=== PATIENT | male | born 1970 | race Caucasian/White ===

== ENCOUNTER 2021-03-02 00:59 | Emergency (ER) | payer BC, SELFPAY ==
[2021-03-02 01:14] VITALS: BP 125/76; PULSE 96; RESP 20; TEMP 36.2; O2SAT 90; BMI 35.9
--- NOTE | 2021-03-02 01:22 | CTR_ITS ---
PROCEDURE INFORMATION: Exam: CT Abdomen And Pelvis With Contrast Exam date and time: 03/02/2021 1:22 AM Age: 50 years old Clinical indication: Vomiting; Abdominal pain; Generalized; Prior surgery; Surgery date: 6+ months; Surgery type: Hernia; Additional info: Abdominal pain vomiting TECHNIQUE: Imaging protocol: Computed tomography of the abdomen and pelvis with contrast. Radiation optimization: All CT scans at this facility use at least one of these dose optimization techniques: automated exposure control; mA and/or kV adjustment per patient size (includes targeted exams where dose is matched to clinical indication); or iterative reconstruction. Contrast material: OMNI 300; Contrast volume: 95 ml; Contrast route: INTRAVENOUS (IV); COMPARISON: No relevant prior studies available. RADIATION DOSE METRICS: Total DLP (mGy-cm): 1857.51 FINDINGS: Lungs: Hazy bilateral pulmonary opacities which are consistent with COVID-19. Liver: There is fatty infiltration of the liver. Gallbladder and bile ducts: Gallbladder is normal. Pancreas: Pancreas is normal. Spleen: Spleen is normal. Adrenal glands: Adrenals are normal. Kidneys and ureters: There is a subcentimeter low-attenuation lesion/lesions, of the left kidney which are too small to accurately characterize by CT. Stomach and bowel: Unremarkable. No obstruction. No mucosal thickening. Appendix: No evidence of appendicitis. Intraperitoneal space: Unremarkable. No free air. No significant fluid collection. Vasculature: Unremarkable. No abdominal aortic aneurysm. Lymph nodes: Unremarkable. No enlarged lymph nodes. Urinary bladder: Unremarkable as visualized. Reproductive: Unremarkable as visualized. Bones/joints: Unremarkable. No acute fracture. Soft tissues: Prior left inguinal hernia repair. Prior right inguinal hernia repair. CT/CT abdomen pelvis w con* [id number] IMPRESSION: 1. No cause for acute pain is identified. 2. Hazy bilateral pulmonary opacities which are consistent with COVID-19. 3. Fatty infiltration of the liver. COMMENTS: Consistent with the [employer]'s Incidental Findings Committee white paper (J Am Aracelis Radiol 2018): Any incidental renal lesion less than 1 cm or classified as too small to characterize, or any incidental cystic renal lesion characterized as simple-appearing, is likely benign. No follow-up imaging is recommended for these lesions per consensus recommendations based on imaging criteria. Radiation Dose CTDIVOL = (mGy): DLP = 1857.51 (mGy-cm)
[2021-03-02] MEDS: ondansetron 2 mg/ML SDV 2 mL 4 MG IVP (01:32)
[2021-03-02 01:33] VITALS: RESP 16; O2SAT 92
[2021-03-02] MEDS: morphine 4 mg/mL SDV 1 mL IVP (01:33)
[2021-03-02 01:39] LABS: Basophils % 0.1 %; Hematocrit 36.7 % (42.0-52.0); Hemoglobin 12.1 g/dL (11.7-16.6); Lymphocytes # 1.4 10^3/uL (0.8-4.8); Lymphocytes % 20.4 %; Mean Corpuscular Hemoglobin 29.4 pg (28.0-34.0); Mean Corpuscular Volume 89.1 fl (80-94); Mean Platelet Volume 10.2 fL (7.4-10.4); Monocytes # 0.3 10^3/uL (0.2-0.9); Monocytes % 4.9 %; Neutrophils % 74.2 %; Nucleated Red Blood Cells % 0 %; Platelet Count 183 10^3/cmm (130-400); Red Blood Count 4.12 10^6/uL (4.1-5.3); Red Cell Distribution Width 13.3 % (12.1-15.1); White Blood Count 6.8 10^3/uL (4.0-10.0)
[2021-03-02] MEDS: iohexol 300 mg/mL 100 mL Btl IV (01:40)
[2021-03-02] MEDS: sodium chloride 0.9% 1,000 ML 999 ML IV (01:50)
[2021-03-02 01:55] LABS: Lactate (Lactic Acid level) 0.8 mmol/L (0.5-2.2)
[2021-03-02 02:00] LABS: SARS Covid-2 Antigen Negative (Negative)
[2021-03-02 02:20] LABS: Alanine Aminotransferase 63 U/L (0-41); Albumin Level 3.4 g/dL (3.5-5.2); Alkaline Phosphatase 68 IU/L (40-130); Aspartate Amino Transferase 63 U/L (0-40); Blood Urea Nitrogen 10 mg/dL (6-20); C Reactive Protein 31.7 mg/L (0.0-4.9); Calcium 8.3 mg/dL (8.5-10.5); Carbon Dioxide 25 mmol/L (22-29); Chloride 94 mmol/L (98-107); Creatine Phosphokinase 127 U/L (39-308); Creatinine Clr Calc Pharmacy 132.9061; Globulin 2.8 g/dL (1.3-4.6); Glomerular Filtration Rate 89.7 mL/min (90-130); Glucose 100 mg/dL (65-115); Lipase 47 U/L (13-60); Osmolality Calculated 269 mOsm/kg (285-295); Sodium 130 mmol/L (136-145); Total Bilirubin 0.3 mg/dL (0.15-1.2); Total Protein 6.2 g/dL (6.6-8.7)
[2021-03-02 02:26] LABS: Procalcitonin 0.11 ng/mL (0-0.5)
[2021-03-02 02:35] LABS: Protein Urine Trace (Negative); Specific Gravity, Urine 1.005 (1.005-1.030); Urine Appearance Clear (CLEAR); Urine Color Yellow (Yellow); pH Urine 6.5 (5-7)
[2021-03-02 02:36] LABS: Add Urine Microscopic? YES; Bilirubin Urine 1+ (Negative); Blood Urine 2+ (Negative); Glucose Urine UA Norm (Normal); Ketones Urine Negative (Negative); Leukocyte Esterase Urine Trace (Negative); Nitrate Urine Negative (Negative); Urobilinogen Urine 1 mg/dL (Negative)
[2021-03-02 02:37] LABS: Add Urine Culture? No; Bacteria Urine TRACE /hpf; Mucus Urine TRACE /hpf; Squamous Epithelial Cell Urine 0-4 /hpf (0-5); WBC Urine 0-4 /hpf (0-5)
--- NOTE | 2021-03-02 02:46 | ED_ITS ---
HPI - Nausea/Vomiting/Diarrhea General: Chief complaint: Nausea/Vomiting/Diarrhea Stated complaint: Nausea\Vomiting\ADB Pain Time Seen by Provider: 03/02/21 01:13 History of Present Illness: HPI Narrative: 50-year-old male presenting with nausea vomiting and diarrhea with abdominal pain. He notes that he has been sick for the last week. He had multiple episodes of vomiting that day. He has since had some vomiting and diarrhea with generalized weakness. He states that he has had a cough with some congestion as well. No fever. MD elicited complaint: nausea, vomiting, diarrhea and abdominal pain Pertinent past history: other Onset (ago): day(s) (7) Description of vomiting: watery Description of diarrhea: watery Associated nausea: Yes Associated abdominal pain: Yes Location of pain: Diffuse Radiation: diffuse Pain consistency: constant Severity: moderate Quality: cramping Exacerbating factors: none Relieving factors: none Associated symtoms: Reports cough, nausea and weakness; Denies bloating, chest pain, diaphoresis, fevers/chills or short of breath Review of Systems Const: Denies: diaphoresis Card: Denies: chest pain GI: Reports: nausea; Denies: bloating [facility] ED PFSH: Social History Smoking and tobacco status: never smoked Physical Exam Const: COMMON NORMALS: no acute distress and patient oriented x3 HENMT: COMMON NORMALS: normocephalic HEAD & SCALP: normocephalic Eye: COMMON NORMALS: Equal, round and reactive pupils present and EOMs intact bilaterally PUPIL: Yes Equal, round and reactive pupils present Chest: COMMONS NORMALS: normal inspection of the chest Resp: COMMON NORMALS: normal respiratory effort, No use of accessory muscles and clear to auscultation bilaterally AUSCULTATION: clear to auscultation bilaterally Cardio: COMMON NORMALS: regular rate and regular rhythm RATE: regular rate RHYTHM: regular rhythm Neuro: COMMON NORMALS: patient oriented x3 Course Vital Signs: Vital signs: Vital Signs Temperature 97.1 F L 03/02/21 01:14 Pulse Rate 96 03/02/21 01:14 Respiratory Rate 16 03/02/21 01:33 Blood Pressure 125/76 03/02/21 01:14 Pulse Oximetry 92 03/02/21 01:33 MDM - Nausea/Vomiting/Diarrhea MDM Narrative: Medical decision making narrative: 50-year-old male with gastroenteritis symptoms and belly pain. His potassium is 3.0 and repleted here. His white blood cell count is 6.8. His CT of the abdomen and pelvis is nonacute, as far as the abdomen and GI tract, but does show hazy bilateral pulmonary opacities consistent with pneumonitis or COVID-19. His rapid COVID-19 is posit ivonne here. PCR is sent. He has had symptoms at least 7 days. He is not hypoxic here. He'll be allowed discharged with symptomatic treatment. Lab Data: Labs: Lab Results 03/02/21 03/02/21 03/02/21 Range/Units 01:23 01:23 01:23 WBC 6.8 (4.0-10.0) 10^3/ uL RBC 4.12 (4.1-5.3) 10^6/u L Hgb 12.1 (11.7-16.6) g/dL Hct 36.7 L (42.0-52.0) % MCV 89.1 (80-94) fl MCH 29.4 (28.0-34.0) pg MCHC 33.0 (30.0-36.0) g/dL RDW 13.3 (12.1-15.1) % Plt Count 183 (130-400) 10^3/c mm MPV 10.2 (7.4-10.4) fL Neut % (Auto) 74.2 % Lymph % (Auto) 20.4 % Stevens % (Auto) 4.9 % Eos % (Auto) 0.0 % Baso % (Auto) 0.1 % Neut # (Auto) 5.00 (1.8-7.7) 10^3/u L Lymph # (Auto) 1.4 (0.8-4.8) 10^3/u L Stevens # (Auto) 0.3 (0.2-0.9) 10^3/u L Eos # (Auto) 0.0 (0.0-0.8) 10^3/u L Baso # (Auto) 0.0 (0.0-0.1) 10^3/u L Nucleated RBC % (a uto) 0 % Nucleated RBCs # 0.0 /100WBC Sodium Cancelled Potassium Cancelled Chloride Cancelled Carbon Dioxide Cancelled Anion Gap Cancelled BUN Cancelled Creatinine Cancelled GFR Calculation Cancelled Glucose Cancelled Calculated Osmolal ity Cancelled Lactate 0.8 (0.5-2.2) mmol/L Calcium Cancelled Total Bilirubin Cancelled AST Cancelled ALT Cancelled Alkaline Phosphata se Cancelled Creatine Kinase Cancelled C-Reactive Protein Cancelled Total Protein Cancelled Albumin Cancelled Globulin Cancelled Lipase Cancelled Procalcitonin Cancelled Urine Color (Yellow) Urine Appearance (CLEAR) Urine pH (5-7) Ur Specific Gravit y (1.005-1.030) Urine Protein (Negative) Urine Glucose (UA) (Normal) Urine Ketones (Negative) Urine Blood (Negative) Urine Nitrate (Negative) Urine Bilirubin (Negative) Urine Urobilinogen (Negative) mg/dL Ur Leukocyte Joyce ase (Negative) Urine RBC (0-2) /hpf Urine WBC (0-5) /hpf Ur Squamous Epith Cells (0-5) /hpf Amorphous Sediment Urine Bacteria (NONE) /hpf Urine Mucus /hpf SARS-CoV-2 Ag (Rap id) (Negative) 03/02/21 03/02/21 03/02/21 Range/Units 01:23 01:53 02:20 WBC (4.0-10.0) 10^3/ uL RBC (4.1-5.3) 10^6/u L Hgb (11.7-16.6) g/dL Hct (42.0-52.0) % MCV (80-94) fl MCH (28.0-34.0) pg MCHC (30.0-36.0) g/dL RDW (12.1-15.1) % Plt Count (130-400) 10^3/c mm MPV (7.4-10.4) fL Neut % (Auto) % Lymph % (Auto) % Stevens % (Auto) % Eos % (Auto) % Baso % (Auto) % Neut # (Auto) (1.8-7.7) 10^3/u L Lymph # (Auto) (0.8-4.8) 10^3/u L Stevens # (Auto) (0.2-0.9) 10^3/u L Eos # (Auto) (0.0-0.8) 10^3/u L Baso # (Auto) (0.0-0.1) 10^3/u L Nucleated RBC % (a uto) % Nucleated RBCs # /100WBC Sodium 130 L Potassium 3.0 L Chloride 94 L Carbon Dioxide 25 Anion Gap 14.0 BUN 10 Creatinine 0.9 GFR Calculation 89.7 L Glucose 100 Calculated Osmolal ity 269 L Lactate (0.5-2.2) mmol/L Calcium 8.3 L Total Bilirubin 0.3 AST 63 H ALT 63 H Alkaline Phosphata se 68 Creatine Kinase 127 C-Reactive Protein 31.7 H Total Protein 6.2 L Albumin 3.4 L Globulin 2.8 Lipase 47 Procalcitonin 0.11 Urine Color Yellow (Yellow) Urine Appearance Clear (CLEAR) Urine pH 6.5 (5-7) Ur Specific Gravit y 1.005 (1.005-1.030) Urine Protein Trace (Negative) Urine Glucose (UA) Norm (Normal) Urine Ketones Negative (Negative) Urine Blood 2+ H (Negative) Urine Nitrate Negative (Negative) Urine Bilirubin 1+ H (Negative) Urine Urobilinogen 1 H (Negative) mg/dL Ur Leukocyte Joyce ase Trace H (Negative) Urine RBC 5-10 H (0-2) /hpf Urine WBC 0-4 H (0-5) /hpf Ur Squamous Epith Cells 0-4 H (0-5) /hpf Amorphous Sediment Not Reportable Urine Bacteria Trace (NONE) /hpf Urine Mucus Trace /hpf SARS-CoV-2 Ag (Rap id) Negative (Negative) Discharge Plan Discharge Patient Disposition: Home Clinical Impression: Gastroenteritis, Suspected 2019 novel coronavirus infection Condition: Stable Prescriptions: New hydrocodone-acetaminophen 5-325 mg tablet 1 tab PO Q8H PRN (Reason: pain) Qty: 7 RF: 0 Zofran 4 mg tablet 4 mg PO Q6H PRN (Reason: nausea and vomiting) Qty: 10 RF: 0 No Action No Known Home Medications RF: 0 amoxicillin-pot clavulanate [Augmentin] 875-125 mg tablet 1 tab PO Q12H 7 Days Qty: 14 RF: 0 Discharge Orders: Discharge ED (Routine); Ordered 03/02/21 Ordered By: Meliton Kincaid Patient Instructions: Gastroenteritis (ED) Activity Restrictions/Additional Instructions: Your CT scan, and laboratory values are suspicious for COVID-19. A confirmatory test has been sent for this. Your treatment is symptomatic, with nausea medication and pain medication as needed. Return for worsening shortness of breath, inability to tolerate liquids despite treatment, any other concerning symptoms. He should quarantine at home until the results of your final PCR COVID-19 test comes back negative. If it turns positive, call the [facility] COVID-19 hotline during normal business hours, as you may be a candidate for monoclonal antibody infusion. Coding Level of Care Code ED Service Establishment Attendant for Todd Fwkasey Exam Detailed
[2021-03-03 19:58] LABS: Quest SARS-CoV-2 RNA DETECTED (NOT DETECTED)
== END 2021-03-02 04:22 | disposition home or self-care (01) ==
PROVIDERS: Emergency Provider Emergency Medicine
DX: K52.9 Noninfective gastroenteritis and colitis, unspecified (principal); U07.1 COVID-19
CPT/HCPCS: 74177; 80053; 81001; 82550; 83605; 83690; 84145; 85025; 86140; 87426; 87635; 96361; 96374; 96375; 99284; J2270; J2405; J7030; Q9967

== ENCOUNTER 2021-03-04 08:51 | Emergency (ER) | payer BC, SELFPAY ==
--- NOTE | 2021-03-04 09:06 | XRR_ITS ---
PROCEDURE INFORMATION: Exam: XR Chest Exam date and time: 03/04/2021 9:06 AM Age: 50 years old Clinical indication: Other: Weakness; Patient HX: Covid symptoms, approx. 3 days; Additional info: Covid, weakness TECHNIQUE: Imaging protocol: XR of the chest. Views: 1 view. Total images: 1 COMPARISON: CT abdomen pelvis w con* [id number] 03/02/2021 1:38 AM FINDINGS: Lungs: Hazy focal bilateral pulmonary opacities within bilateral lower lobes were partially visualized on prior CT and appear unchanged. Pleural spaces: Unremarkable. No pleural effusion. No pneumothorax. Heart/Mediastinum: Unremarkable. No cardiomegaly. Bones/joints: Unremarkable. XR/XR chest 1V portable [id number] IMPRESSION: Hazy focal bilateral pulmonary opacities within bilateral lower lobes were partially visualized on prior CT and appear unchanged.
[2021-03-04 09:36] VITALS: BP 119/77; PULSE 87; RESP 18; TEMP 37.9; O2SAT 94; BMI 35.0
--- NOTE | 2021-03-04 12:36 | PC.NURSE ---
Assumed care of this patient at this time.
[2021-03-04 12:40] VITALS: BP 126/77; PULSE 79; RESP 18; TEMP 37.5; O2SAT 96
[2021-03-04 12:41] VITALS: O2SAT 97
[2021-03-04 13:10] LABS: Lymphocytes # 0.8 10^3/uL (0.8-4.8); Lymphocytes % 12.2 %; Mean Corpuscular HGB Conc 34.2 g/dL (30.0-36.0); Mean Corpuscular Hemoglobin 29.4 pg (28.0-34.0); Mean Platelet Volume 9.8 fL (7.4-10.4); Monocytes # 0.4 10^3/uL (0.2-0.9); Monocytes % 5.9 %; Neutrophils # 4.99 10^3/uL (1.8-7.7); Neutrophils % 81.4 %; Nucleated Red Blood Cells % 0 %; Platelet Count 254 10^3/cmm (130-400); Red Blood Count 4.42 10^6/uL (4.1-5.3); Red Cell Distribution Width 12.4 % (12.1-15.1); White Blood Count 6.1 10^3/uL (4.0-10.0)
[2021-03-04 13:34] LABS: Alanine Aminotransferase 65 U/L (0-41); Albumin Level 3.5 g/dL (3.5-5.2); Alkaline Phosphatase 89 IU/L (40-130); Anion Gap 15.4 (5-19); Aspartate Amino Transferase 45 U/L (0-40); Blood Urea Nitrogen 10 mg/dL (6-20); Carbon Dioxide 26 mmol/L (22-29); Chloride 96 mmol/L (98-107); Globulin 3.6 g/dL (1.3-4.6); Glomerular Filtration Rate 102.7 mL/min (90-130); Glucose 92 mg/dL (65-115); Osmolality Calculated 277 mOsm/kg (285-295); Potassium 3.4 mmol/L (3.5-5.1); Sodium 134 mmol/L (136-145); Total Bilirubin 0.5 mg/dL (0.15-1.2); Total Protein 7.1 g/dL (6.6-8.7)
[2021-03-04 13:36] LABS: C Reactive Protein 84.1 mg/L (0.0-4.9)
[2021-03-04] MEDS: acetaminophen 325 mg Tablet 650 MG PO (13:38)
[2021-03-04] MEDS: ondansetron 2 mg/ML SDV 2 mL 4 MG IVP (13:38)
[2021-03-04] MEDS: sodium chloride 0.9% 1,000 ML 999 ML IV (13:39)
[2021-03-04 13:45] VITALS: BP 131/83; PULSE 83; RESP 16; TEMP 37.6; O2SAT 97
--- NOTE | 2021-03-04 14:04 | W.ED.COVID ---
HPI - COVID General: Chief Complaint: COVID symptoms Stated Complaint: weak, n/v, Time Seen by Provider: 03/04/21 12:48 Triage information: Has fever, cough or shortness of breath. Exposure to COVID + person last 14 days History of Present Illness: MD complaint: known COVID positive Prior covid testing: yes, results known COVID 19 common symptoms: positive fever(s), cough, non-productive cough, fatigue, body aches, headache(s), nausea, vomiting and diarrhea; negative productive cough, dyspnea or throat pain COVID 19 other sytmptoms: negative chest pain Onset (ago): day(s) (4) Severity: moderate Pertinent comorbid conditions: obesity COVID Results: SARS-CoV-2 Antigen (Rapid) Negative (Negative) 03/02/21 01:23 03/02/21 SARS-CoV-2 RNA (RT-PCR) Detected (NOT DETECTED) A 03/02/21 03:48 03/02/21 Review of Systems General: Reports: 10 or more systems reviewed and unremarkable except in HPI and below Const: Reports: fever(s), body aches, fatigue and malaise; Denies: diaphoresis Eyes: Denies: change in vision ENMT: Denies: throat pain or swelling of lips/tongue Card: Denies: chest pain, edema, swelling of feet/ankles or syncope Resp: Reports: non-productive cough; Denies: dyspnea, productive cough or hemoptysis GI: Reports: nausea, vomiting and diarrhea; Denies: abdominal pain : Denies: flank pain, dysuria or urinary frequency Musc: Reports: neck pain; Denies: extremity pain or extremity swelling Skin/Breast: Denies: rash or erythema Neuro: Reports: headache(s) PFSH ED PFSH: Social History Smoking and tobacco status: never smoked Physical Exam Const: COMMON NORMALS: no limitations, alert and well nourished EXAM LIMITATIONS: no altered mental status and no language barrier GENERAL APPEARANCE: cooperative, well kempt and well developed; not ill appearing and not frail appearing NUTRITIONAL APPEARANCE: obese ORIENTATION/CONSCIOUSNESS: Yes awake; not confused HENMT: COMMON NORMALS: normocephalic, atraumatic, external ears normal and Normal external nose present HEAD & SCALP: normal to inspection, normocephalic and atraumatic FACE & SINUS: face symmetric NOSE: Normal external nose present EXTERNAL EAR: Yes external ears normal MOUTH: no muffled voice Eye: COMMON NORMALS: EOMs intact bilaterally and conjunctivae normal GENERAL EYE: appearance normal, both eyes and all related structures CONJUNCTIVA: Yes conjunctivae normal SCLERA: sclerae normal Neck/C-Spine: COMMON NORMALS: full ROM and no JVD GENERAL: Yes normal visual inspection and Yes trachea midline Resp: COMMON NORMALS: normal respiratory effort, No retractions and No use of accessory muscles EFFORT & INSPECTION: Yes able to speak in complete sentences and Yes symmetric chest movement AUSCULTATION: rales (mild basilar velcro sounds), no wheezes and lung sounds not diminished Cardio: COMMON NORMALS: no JVD, regular rate and regular rhythm RATE: regular rate RHYTHM: regular rhythm PERIPHERAL PULSES: radial pulses present GI: COMMON NORMALS: Soft to palpation INSPECTION: Yes normal to inspection PALPATION: Yes Soft to palpation, No Tenderness to palpation present (GI) and No Guarding due to palpation present (GI) Back/Pelvis: COMMON NORMALS: thoraco-lumbar ROM normal Extremity: COMMON NORMALS: normal to inspection GENERAL: Yes normal exam except as noted, No calf tenderness, No edema and No mottling Neuro: COMMON NORMALS: moves all extremities, no focal motor deficits and no sensory deficits noted SENSORIUM/ORIENTATION: Yes alert Psych: COMMON NORMALS: mental status grossly normal, Normal thought process present, cooperative, normal affect and speech normal APPEARANCE: Yes well kempt SPEECH: Yes normal speech THOUGHT PROCESS: Normal thought process present Skin: COMMON NORMALS: no rashes or lesions noted, turgor normal and no jaundice GENERAL SKIN EXAM: no rashes or lesions noted and turgor normal Course Vital Signs: Vital signs: Vital Signs Temperature 99.6 F 03/04/21 13:45 Pulse Rate 83 03/04/21 13:45 Respiratory Rate 16 03/04/21 13:45 Blood Pressure 131/83 03/04/21 13:45 Pulse Oximetry 97 03/04/21 13:45 MDM - COVID MDM Narrative: Medical decision making narrative: 50-year-old male with confirmed COVID-19 infection presents with nausea vomiting diarrhea and feeling dehydrated. He does have a dry cough. Chest x-ray shows bibasilar infiltrate. The patient has a temperature of 3.3 on arrival and has been given Tylenol. He will be given Zofran, normal saline, loperamide for his other symptoms. The patient has been informed of monoclonal antibody treatment available under emergency utilization authorization. The risk benefits and alternatives were described to the patient. Due to the patient's obesity he qualifies for this treatment. The patient is interested in receiving this infusion. He has consented to same. I tried to arrange it through the outpatient [facility] clinic but they were closed for the day. Patient will receive treatment in the emergency department. His potassium was mildly low and will be replaced. Creatinine okay. WBC wnl. Mild transaminitis is expected. After infusion will plan on d/c with return precautions and supportive meds. Lab Data: Labs: Lab Results 03/04/21 03/04/21 03/04/21 Range/Units 12:55 12:55 12:55 WBC 6.1 (4.0-10.0) 10^3/ uL RBC 4.42 (4.1-5.3) 10^6/u L Hgb 13.0 (11.7-16.6) g/dL Hct 38.0 L (42.0-52.0) % MCV 86.0 (80-94) fl MCH 29.4 (28.0-34.0) pg MCHC 34.2 (30.0-36.0) g/dL RDW 12.4 (12.1-15.1) % Plt Count 254 (130-400) 10^3/c mm MPV 9.8 (7.4-10.4) fL Neut % (Auto) 81.4 % Lymph % (Auto) 12.2 % Beckham % (Auto) 5.9 % Eos % (Auto) 0.0 % Baso % (Auto) 0.0 % Neut # (Auto) 4.99 (1.8-7.7) 10^3/u L Lymph # (Auto) 0.8 (0.8-4.8) 10^3/u L Beckham # (Auto) 0.4 (0.2-0.9) 10^3/u L Eos # (Auto) 0.0 (0.0-0.8) 10^3/u L Baso # (Auto) 0.0 (0.0-0.1) 10^3/u L Nucleated RBC % (a uto) 0 % Nucleated RBCs # 0.0 /100WBC Sodium 134 L (136-145) mmol/L Potassium 3.4 L (3.5-5.1) mmol/L Chloride 96 L (98-107) mmol/L Carbon Dioxide 26 (22-29) mmol/L Anion Gap 15.4 (5-19) BUN 10 (6-20) mg/dL Creatinine 0.8 (0.7-1.2) mg/dL GFR Calculation 102.7 (90-130) mL/min Glucose 92 (65-115) mg/dL Calculated Osmolal ity 277 L (285-295) mOsm/k g Calcium 9.0 (8.5-10.5) mg/dL Total Bilirubin 0.5 (0.15-1.2) mg/dL AST 45 H (0-40) U/L ALT 65 H (0-41) U/L Alkaline Phosphata se 89 (40-130) IU/L C-Reactive Protein 84.1 H (0.0-4.9) mg/L Total Protein 7.1 (6.6-8.7) g/dL Albumin 3.5 (3.5-5.2) g/dL Globulin 3.6 (1.3-4.6) g/dL COVID Results: SARS-CoV-2 Antigen (Rapid) Negative (Negative) 03/02/21 01:23 03/02/21 SARS-CoV-2 RNA (RT-PCR) Detected (NOT DETECTED) A 03/02/21 03:48 03/02/21 Monoclonal Antibody - ED Inclusion/Exclusion Criteria age >/= 12 years, weight >/= 40kg /88lbs, symptom onset less than 10 days ago and + direct Sars-Cov-2 test less than 7-10 days ago obesity (BMI >25 or 85%til for age) not requiring hospitalization and not requiring oxygen (if not chronically on oxygen) Patient education Emergency Use Authorization/unapproved drug status discussed with patient/family/caregiver, alternatives to this treatment discussed with patient/family/caregiver, risks and benefits of medication reviewed with patient/family/caregiver, patient/family/caregiver given opportunity for questions, which were answered and patient consents to receiving Monoclonal Antibody Treatment Plan for treatment Meets criteria for Monoclonal Antibody infusion Date of symptom(s) onset: 03/01/21 Where are the positive COVID test results, if positive?: Resulted in [facility] Ordering Monoclonal Antibody infusion for today Discharge Plan Discharge Patient Disposition: Home Clinical Impression: Pneumonia due to 2019 novel coronavirus, Nausea vomiting and diarrhea, Dehydration Condition: Stable Prescriptions: New loperamide [Anti-Diarrheal (loperamide)] 2 mg capsule 2 mg PO Q6H PRN (Reason: loose stool) Qty: 10 RF: 0 potassium chloride 20 mEq tablet extended release 20 meq PO DAILY 7 Days Qty: 7 RF: 0 benzonatate [Tessalon Perles] 100 mg capsule 100 mg PO TID PRN (Reason: cough) Qty: 12 RF: 0 ondansetron HCl [Zofran] 4 mg tablet 4 mg PO Q8H 5 Days Qty: 15 RF: 0 No Action ergocalciferol (vitamin D2) 1,250 mcg (50,000 unit) capsule 1,250 mcg PO Q7D RF: 0 Discharge Orders: Discharge ED (Routine); Ordered 03/04/21 Ordered By: Hitesh Kerns Referrals: Talib Molina DO [Physician] - 7-10 days (Follow-up for COVID19 pneumonia, onset 03-01-21 ) Discharge Diet: Advance as tolerated Discharge Activity: Resume usual activity Patient Instructions: Severe Acute Respiratory Syndrome (SARS) (ED), Opioid Safety Activity Restrictions/Additional Instructions: Use an over the counter pulse oximeter to keep track of your oxygen and heart rate. If your oxygen level is 90% or less at rest while relaxed then you need to return to ER for evaluation. Please read handout about other instructions and return precautions. Coding Level of Care Code ED Learning And Development Associate for Todd Brooks
--- NOTE | 2021-03-04 14:24 | ED_ITS ---
HPI - COVID General: Chief Complaint: COVID symptoms Stated Complaint: weak, n/v, Time Seen by Provider: 03/04/21 12:48 Triage information: Has fever, cough or shortness of breath . Exposure to COVID + person last 14 days History of Present Illness: COVID 19 common symptoms: positive fever(s), non- productive cough, fatigue, body aches, headache(s), nausea, vomiting and diarrhea; negative chills, productive cough, dyspnea or throat pain COVID 19 other sytmptoms: negative chest pain Severity: moderate COVID Results: SARS-CoV-2 Antigen (Rapid) Negative (Negative) 03/02/21 01:23 03/02/21 SARS-CoV-2 RNA (RT-PCR) Detected (NOT DETECTED) A 03/02/21 03:48 03/02/21 Review of Systems General: Reports: 10 or more systems reviewed and unremarkable except in HPI and below Const: Reports: fever(s), body aches, change in appetite, fatigue and malaise; Denies: chills Eyes: Denies: change in vision ENMT: Denies: throat pain Card: Denies: chest pain, edema or syncope Resp: Reports: non-productive cough; Denies: dyspnea or productive cough GI: Reports: nausea, vomiting and diarrhea; Denies: abdominal pain : Denies: flank pain, dysuria or urinary frequency Musc: Denies: neck pain, back pain, extremity pain or extremity swelling Skin/Breast: Denies: rash or erythema Neuro: Reports: headache(s); Denies: numbness in extremities, weakness in extremities, lack of coordination or difficulty walking PFS ED PFSH: Social History Smoking and tobacco status: never smoked Physical Exam Const: COMMON NORMALS: no limitations, alert and well nourished EXAM LIMITATIONS: no altered mental status GENERAL APPEARANCE: cooperative and well developed NUTRITIONAL APPEARANCE: obese ORIENTATION/CONSCIOUSNESS: Yes awake; not confused HENMT: COMMON NORMALS: normocephalic, atraumatic, external ears normal and Normal external nose present HEAD & SCALP: normal to inspection, normocephalic and atraumatic FACE & SINUS: face symmetric NOSE: Normal external nose present EXTERNAL EAR: Yes external ears normal MOUTH: lip normal; no muffled voice Eye: COMMON NORMALS: EOMs intact bilaterally and conjunctivae normal GENERAL EYE: appearance normal, both eyes and all related structures CONJUNCTIVA: Yes conjunctivae normal Neck/C-Spine: COMMON NORMALS: no JVD GENERAL: Yes normal visual inspection and Yes trachea midline Chest: CHEST: Yes Symmetrical chest wall rise Resp: COMMON NORMALS: normal respiratory effort and No use of accessory muscles EFFORT & INSPECTION: Yes able to speak in complete sentences and Yes symmetric chest movement AUSCULTATION: rales (mild bibasilar velcro sounding rales) and no wheezes Cardio: COMMON NORMALS: no JVD, regular rate and regular rhythm RATE: regular rate RHYTHM: regular rhythm PERIPHERAL PULSES: radial pulses present GI: COMMON NORMALS: Soft to palpation INSPECTION: Yes normal to inspection PALPATION: Yes Soft to palpation, No Tenderness to palpation present (GI) and No Guarding due to palpation present (GI) Back/Pelvis: COMMON NORMALS: thoraco-lumbar ROM normal Extremity: COMMON NORMALS: normal to inspection GENERAL: Yes normal exam except as noted Neuro: COMMON NORMALS: moves all extremities, no focal motor deficits and no sensory deficits noted SENSORIUM/ORIENTATION: Yes alert Psych: COMMON NORMALS: mental status grossly normal, Normal thought process present, cooperative, normal affect and speech normal SPEECH: Yes normal speech THOUGHT PROCESS: Normal thought process present Skin: COMMON NORMALS: no rashes or lesions noted, turgor normal and no jaundice GENERAL SKIN EXAM: no rashes or lesions noted and turgor normal Course ED course: Nontoxic, NAD. patient hemodynamically stable. Mild hypokalemia, transaminitis, and dehydration--correct these. On room air. Originally consented to monoclonal ab therapy, this was ordered; then, at last minute, decided not to take it. Patient has covid pneumonia, n/v/d. D/c with zofran, tessalon, loperamide, potassium. GIven return precautions. Vital Signs: Vital signs: Vital Signs Temperature 99.6 F 03/04/21 14:26 Pulse Rate 83 03/04/21 14:26 Respiratory Rate 16 03/04/21 14:26 Blood Pressure 121/67 03/04/21 14:26 Pulse Oximetry 95 03/04/21 14:26 MDM - COVID Lab Data: Labs: Lab Results 03/04/21 03/04/21 03/04/21 Range/Units 12:55 12:55 12:55 WBC 6.1 (4.0-10.0) 10^3/ uL RBC 4.42 (4.1-5.3) 10^6/u L Hgb 13.0 (11.7-16.6) g/dL Hct 38.0 L (42.0-52.0) % MCV 86.0 (80-94) fl MCH 29.4 (28.0-34.0) pg MCHC 34.2 (30.0-36.0) g/dL RDW 12.4 (12.1-15.1) % Plt Count 254 (130-400) 10^3/c mm MPV 9.8 (7.4-10.4) fL Neut % (Auto) 81.4 % Lymph % (Auto) 12.2 % [place] % (Auto) 5.9 % Eos % (Auto) 0.0 % Baso % (Auto) 0.0 % Neut # (Auto) 4.99 (1.8-7.7) 10^3/u L Lymph # (Auto) 0.8 (0.8-4.8) 10^3/u L [place] # (Auto) 0.4 (0.2-0.9) 10^3/u L Eos # (Auto) 0.0 (0.0-0.8) 10^3/u L Baso # (Auto) 0.0 (0.0-0.1) 10^3/u L Nucleated RBC % (a uto) 0 % Nucleated RBCs # 0.0 /100WBC Sodium 134 L (136-145) mmol/L Potassium 3.4 L (3.5-5.1) mmol/L Chloride 96 L (98-107) mmol/L Carbon Dioxide 26 (22-29) mmol/L Anion Gap 15.4 (5-19) BUN 10 (6-20) mg/dL Creatinine 0.8 (0.7-1.2) mg/dL GFR Calculation 102.7 (90-130) mL/min Glucose 92 (65-115) mg/dL Calculated Osmolal ity 277 L (285-295) mOsm/k g Calcium 9.0 (8.5-10.5) mg/dL Total Bilirubin 0.5 (0.15-1.2) mg/dL AST 45 H (0-40) U/L ALT 65 H (0-41) U/L Alkaline Phosphata se 89 (40-130) IU/L C-Reactive Protein 84.1 H (0.0-4.9) mg/L Total Protein 7.1 (6.6-8.7) g/dL Albumin 3.5 (3.5-5.2) g/dL Globulin 3.6 (1.3-4.6) g/dL COVID Results: SARS-CoV-2 Antigen (Rapid) Negative (Negative) 03/02/21 01:23 03/02/21 SARS-CoV-2 RNA (RT-PCR) Detected (NOT DETECTED) A 03/02/21 03:48 03/02/21 Discharge Plan Discharge Patient Disposition: Home Clinical Impression: Pneumonia due to 2019 novel coronavirus, Nausea vomiting and diarrhea, Dehydration Condition: Stable Prescriptions: New Zofran 4 mg tablet 4 mg PO Q8H 5 Days Qty: 15 RF: 0 Anti-Diarrheal (loperamide) 2 mg capsule 2 mg PO Q6H PRN (Reason: loose stool) Qty: 10 RF: 0 potassium chloride 20 mEq tablet extended release 20 meq PO DAILY 7 Days Qty: 7 RF: 0 Tessalon Perles 100 mg capsule 100 mg PO TID PRN (Reason: cough) Qty: 12 RF: 0 No Action ergocalciferol (vitamin D2) 1,250 mcg (50,000 unit) capsule 1,250 mcg PO Q7D RF: 0 Discharge Orders: Discharge ED (Routine); Ordered 03/04/21 Ordered By: Hitesh Kerns Referrals: Talib Molina DO [Physician] - 7-10 days (Follow-up for COVID19 pneumonia, onset 03-01-21 ) Discharge Diet: Advance as tolerated Discharge Activity: Resume usual activity Patient Instructions: Severe Acute Respiratory Syndrome (SARS) (ED), Opioid Safety Activity Restrictions/Additional Instructions: Use an over the counter pulse oximeter to keep track of your oxygen and heart rate. If your oxygen level is 90% or less at rest while relaxed then you need to return to ER for evaluation. Please read handout about other instructions and return precautions. Coding Level of Care Code ED Prom Burn Off Operator for Todd Brooks
[2021-03-04 14:26] VITALS: BP 121/67; PULSE 83; RESP 16; TEMP 37.6; O2SAT 95
--- NOTE | 2021-03-04 14:28 | PC.NURSE ---
Consent discussed consent with patient for casirivimab-imdevimab (covid antibody infusion) and he refuses, doctor is at bedside.
[2021-03-04 14:42] VITALS: BP 117/74; PULSE 84; RESP 18; TEMP 37.3; O2SAT 95
[2021-03-04] MEDS: loperamide 2 mg Capsule 4 MG PO (14:45)
--- NOTE | 2021-03-07 13:33 | DCPLANNER ---
manager activities had message to speak with patient about getting established with a primary care physician. manager activities spoke with patient, he stated that he does have a primary care physician.
== END 2021-03-04 14:51 | disposition home or self-care (01) ==
PROVIDERS: Physician Assistant; Emergency Provider Emergency Medicine
DX: U07.1 COVID-19 (principal); J12.82 Pneumonia due to coronavirus disease 2019; E86.0 Dehydration
CPT/HCPCS: 71045; 80053; 85025; 86140; 96365; 96375; 99284; J2405; J7030